=== PATIENT | male | born 1950 | race Caucasian/White ===

== ENCOUNTER 2023-01-23 12:11 | Emergency (ER) | payer OTHER, MEDICARE, SELFPAY ==
[2023-01-23] VITALS (8 sets, daily range): BP systolic 99–149; BP diastolic 72–102; PULSE 68–77; RESP 29; TEMP 36.1; O2SAT 95–99
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
--- NOTE | 2023-01-23 12:22 | ECG_ITS ---
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 Measurements Intervals [place] Rate: 71 P: 44 TX: 146 QRS: 60 QRSD: 90 T: 48 QT: 394 QTc: 430 Interpretive Statements SINUS RHYTHM LOW QRS VOLTAGE IN PRECORDIAL LEADS [QRS DEFLECTION < 1.0 mV IN CHEST LEADS] POSSIBLE INFERIOR MYOCARDIAL INFARCTION , PROBABLY OLD [30 ms Q WAVE IN II/aVF] INTERPRETATION BASED ON A DEFAULT AGE OF 40 YEARS No previous ECG available for comparison Electronically Signed On 01-23-2023 22:07:27 CDT by Ezra Lema M.D. [id number] f
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
[2023-01-23 12:35] LABS: Basophils % 0.5 %; Eosinophils # 0.1 10^3/uL (0.0-0.8); Eosinophils % 1.6 %; Hematocrit 48.8 % (42.0-52.0); Hemoglobin 16.3 g/dL (11.7-16.6); Lymphocytes # 2.2 10^3/uL (0.8-4.8); Lymphocytes % 39.2 %; Mean Corpuscular HGB Conc 33.4 g/dL (30.0-36.0); Mean Corpuscular Hemoglobin 31.3 pg (28.0-34.0); Mean Corpuscular Volume 93.8 fl (80-94); Mean Platelet Volume 10.3 fL (7.4-10.4); Monocytes # 0.8 10^3/uL (0.2-0.9); Monocytes % 14.4 %; Neutrophils # 2.43 10^3/uL (1.8-7.7); Neutrophils % 43.8 %; Nucleated Red Blood Cells % 0 %; Platelet Count 154 10^3/cmm (130-400); Red Cell Distribution Width 13.6 % (12.1-15.1); White Blood Count 5.6 10^3/uL (4.0-10.0)
[2023-01-23] MEDS: iohexol 350 mg/mL 500 mL Btl (per mL) IV (12:36)
[2023-01-23 12:57] LABS: Alanine Aminotransferase 29 U/L (0-41); Albumin Level 3.9 g/dL (3.5-5.2); Alkaline Phosphatase 97 U/L (40-130); Anion Gap 22.3 (5-19); Aspartate Amino Transferase 31 U/L (0-40); Blood Urea Nitrogen 24 mg/dL (8-23); Calcium 8.5 mg/dL (8.5-10.5); Carbon Dioxide 15 mmol/L (22-29); Chloride 98 mmol/L (98-107); Globulin 3.7 g/dL (1.3-4.6); Glomerular Filtration Rate 42.9 mL/min (90-130); Glucose 150 mg/dL (65-115); Osmolality Calculated 279 mOsm/kg (285-295); Potassium 4.3 mmol/L (3.5-5.1); Sodium 131 mmol/L (136-145); Total Bilirubin 0.3 mg/dL (0.15-1.2); Total Protein 7.6 g/dL (6.6-8.7)
[2023-01-23 12:59] LABS: Troponin(5th) Baseline 16 ng/L (0-15)
[2023-01-23] MEDS: sodium chloride 0.9% 1,000 ML 999 ML IV (12:59)
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
[2023-01-23] MEDS: tetanus-dipt-pertussis 0.5 mL SDV IM (14:15)
[2023-01-23 14:52] LABS: Add Urine Microscopic? YES; Bilirubin Urine Neg (Negative); Blood Urine 2+ (Negative); Glucose Urine UA Norm (Normal); Ketones Urine 1+ (Negative); Leukocyte Esterase Urine Negative (Negative); Nitrate Urine Negative (Negative); Protein Urine 1+ (Negative); Urine Appearance Clear (CLEAR); Urine Color Yellow (Yellow); Urobilinogen Urine Neg (Negative); pH Urine 5 (5-7)
[2023-01-23 14:53] LABS: Add Urine Culture? No; Bacteria Urine TRACE /hpf; Hyaline Casts Urine 0-4 /lpf; Mucus Urine TRACE /hpf; RBC Urine 0-4 /hpf (0-2); Squamous Epithelial Cell Urine 0-4 /hpf (0-5); WBC Urine 0-4 /hpf (0-5)
[2023-01-23 15:33] LABS: Troponin 5 2HR 10.69 ng/L (0-15)
[2023-01-23 15:35] LABS: Troponin 5 2HR Delta -5.31 ABS# (0-10)
--- NOTE | 2023-01-27 15:06 | DCPLANNER ---
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
== END 2023-01-23 18:25 ==
PROVIDERS: Emergency Provider Family Medicine
DX: R55 Syncope and collapse (principal); Z04.1 Encounter for examination and observation following transport accident; V89.0XXA Person injured in unspecified motor-vehicle accident, nontraffic, initial encounter; S80.212A Abrasion, left knee, initial encounter; S80.211A Abrasion, right knee, initial encounter; Z23 Encounter for immunization
CPT/HCPCS: 70450; 71260; 72125; 74177; 80053; 81001; 84484; 85025; 90471; 90715; 93005; 96360; 96361; 99285; J7030; Q9967